=== PATIENT | male | born 1945 | race Caucasian/White ===

== ENCOUNTER 2016-11-18 13:47 | Emergency (ER) | payer MEDICARE ==
--- NOTE | 2016-11-18 13:50 | ED.REPORT ---
HPI-Trauma Minor / Fall Date of Service Nov 18, 2016 ED Provider: Angeli Stevens MD The pt is a 71 y/o male presenting to the ED via EMS due to a 15 foot fall. He was working on the side of a house, fell, and landed awkwardly on his RLE. He reports R knee and sacral pain. There was no LOC but the pt was not able to stand up after the fall. Denies fever, cough, or chills. Nursing Notes Stated Complaint: FALL Chief Complaint: Fall Nursing Notes Reviewed: Yes General Time Seen by MD: 13:50 Chief Complaint Fall Hx Obtained From: Patient, EMS Arrived By: Ambulance Onset Occurred: Just prior to arrival Symptom Duration: Since onset Recent Healthcare: No recent doctor visit, No recent hospitalization Similar Sx Previous: No Past Medical History Past Medical History None reported Past Surgical History None reported Smoking History Unknown if Ever Smoker Social History Other Social History: Good social support Ambulatory Status Independent Review of Systems Sacral pain; Constitutional: Denies: Chills, Fever Respiratory: Denies: Non-productive cough Musculoskeletal: Reports: Joint pain (R knee ) Neurologic: Denies: Change LOC Complete sys rev & neg: except as marked. Physical Exam Initial Vital Signs paper charting no blood pressures lower than systolic 90 noted Initial VS: Reviewed Head / Eyes: Atraumatic, Normocephalic, PERRL ENT: Mucous membranes moist, Conjunctiva normal, No scleral icterus Respiratory: Breath sounds normal, Clear to auscultation, No respiratory distress Cardiovascular: Regular rate & rhythm, Heart sounds normal, Intact distal pulses Neurologic: Alert, Oriented, Nonfocal Psychiatric: Mood/affect normal, Behavior normal, Normal thought content General/Constitutional: Awake, Alert Neck: Atraumatic, Supple, Full range of motion Cardiovascular: Heart rate NL, Regular rhythm, Heart sounds NL, Peripheral circulation NL Good distal pulses Flank / Spine / Paraspinal: Positive: Lumbar spine tender... (L4 and L5 ) No bruising along back; Lower Extremity / Pelvis / MS: Neurologic intact, Vascular intact, Pelvis stable Right Knee: Positive: Deformity present (w/o open skin or abrasion ) Interpretation & Diagnostics PROCEDURE: X-RAY LUMBAR SPINE, 2 OR 3 VIEW IMPRESSION: Small anterior-superior L2 vertebral body fracture. Dictated by: Iram Cook MD, PhD on 11/18/2016 at 14:46 Approved by: Iram Cook MD, PhD on 11/18/2016 at 14:49 Lab Results Interpretation Lab Results Interpretation: CT Knee: IMPRESSION: 1. Schatzker type II fracture of the lateral tibial plateau. 2. Schatzker type fracture of the proximal tibial metaphysis. Dictated by: Iram Cook MD, PhD on 11/18/2016 at 16:08 CT LS Spine IMPRESSION: 1. Transitional anatomy with 4 lumbar-type [id number]-mhh-tigemgt vertebral bodies as described above. 2. L1 and L3 acute compression fractures. No retropulsed fragments or kyphosis associated with the L1 and L3 compression fractures. Dictated by: Iram Cook MD, PhD on 11/18/2016 at 16:00 Wet read of foot/ankle xray indicate no acute fractures/dislocation. await official read X-Ray Interpretation Xray Interpretation: IMPRESSION: Displaced lateral tibial plateau fracture. Dictated by: Iram Cook MD, PhD on 11/18/2016 at 14:45 Approved by: Iram Cook MD, PhD on 11/18/2016 at 14:46 X-Ray Ordered: Knee right Interpretation / Wet Read by: Interpret - Radiologist Xray Interpretation: IMPRESSION: Small anterior-superior L2 vertebral body fracture. Dictated by: Iram Cook MD, PhD on 11/18/2016 at 14:46 Study Performed: X ray LS spine Re-Eval/Medical Decision Med Decision/Clinical Course 71-year-old woman with a fall off a 15 foot high scaffolding landing on the left knee and heel and then falling onto his buttocks. Did not hurt chest upper back neck or head no loss of consciousness. Unable to get up initially. On initial arrival awake alert oriented neurovascularly intact with full distal pulses on the right side. Gross deformity of the right knee. Minor tenderness only to the right heel and ankle and no tenderness to the pelvic ring or groin. Slight tenderness along the lumbar spine. Imaging and studies reveal complex tibial plateau fracture. I will be transferred to [facility]. There is an L1 and L3 compression fracture as well as a small vertebral body fracture of L2 there is no cord impingement or other neurologic compromise. No vascular compromise, and no intra-abdominal or thoracic injuries. Pain is controlled with IV narcotics and the patient is transferred to [facility] emergency room for further orthopedic evaluation and treatment Source of Hx: Friend Re-Evaluation/Progress #1: Time of Eval: 14:57 Re-Evaluation/Progress Note: Pt rechecked and discussed imaging results. Re-Evaluation/Progress #2: Time of Eval: 16:00 Re-Evaluation/Progress Note: CT findings as well as x-ray findings with small L2 fracture of the spinous body are reviewed with patient. Doing moderately well pain beltran is now complaining more heel pain. Initially had had minimal heel pain with compression and manipulation. Given mechanism increasing pain will go ahead and check x-rays of both heel and ankle on the right side. Anticipate need for transfer to [facility] and this process is initiated Re-Evaluation/Progress #3: Time of Eval: 17:01 Re-Evaluation/Progress Note: Updated on all findings as well as transfer anticipated to [facility]. Questions answered. PLS transfer should be here within 20 minutes. Pain is adequately controlled. Patient is safe for S transfer Consultation #1: Referral / Consult Name: Bashir Cason MD Consulted With: Orthopedic Call Returned at: 14:43 Note: Discussed pt's case w/ Dr. Cason who will consult and is requesting additional imaging. Consultation #2: Consulted With: Orthopedic Call Returned at: 16:13 Cell Biologist: Will see patient Note: Dr Cason department. Reviewed films and CTs examined patient. Recommended transfer to [facility] for complex tibial plateau fracture. Counseled Regarding: Diagnosis, Lab results Discharge & Departure Impression: Primary Impression: Tibial plateau fracture Encounter type: initial encounter Fracture type: closed Laterality: right Qualified Code: S82.141A - Displaced bicondylar fracture of right tibia, initial encounter for closed fracture Additional Impressions: Fall Encounter type: initial encounter Qualified Code: W19.XXXA - Unspecified fall, initial encounter L2 vertebral fracture Encounter type: initial encounter Fracture type: closed Fracture morphology : unspecified fracture morphology Qualified Code: S32.029A - Unspecified fracture of second lumbar vertebra, initial encounter for closed fracture Compression fracture of L1 lumbar vertebra Compression fracture of L5 lumbar vertebra Disposition: Transfer, Acute Care Facility ([facility]) Discharge Condition All VS Reviewed: Yes Condition: Stable Referrals: Angelita Saba MD Crit Care Except Billable Proc Time Spent: 30-74 minutes (37 min) Services Performed: Patient management by me, Time spent at bedside, Reviewing test results, Reviewing imaging, Discussing patient care, Documentation in record, Time with fam/surrogate Scribe Attestation Portions of this note were transcribed by Ananth Cohen. I, Dr. Stevens personally performed the history, physical exam and medical decision-making; I reviewed and confirmed the accuracy of the information in the transcribed note. copies to: Angelita Saba MD, Shawna L MD Nov 18, 2016 13:50 Ananth Cohen Nov 18, 2016 14:22
[2016-11-18] MEDS ORDERED: Ondansetron 2 mg/mL 2 mL Inj IVPUSH PRN (14:35)
[2016-11-18] MEDS: HYDROmorphone 0.5 mg/0.5 mL iSecure Syringe IVPUSH PRN ×2 (14:48→16:42)
--- NOTE | 2016-11-18 14:48 | DRSVH ---
PROCEDURE: X-RAY RIGHT KNEE, THREE VIEWS ([id number]) INDICATIONS: trauma TECHNIQUE: 3 views of the knee were acquired. COMPARISON: None. FINDINGS: Bones: Comminuted fracture of the lateral tibial plateau. Lateral tibial plateau fracture fragments are displaced laterally and proximally. Soft tissues: No joint effusion. No suspicious soft tissue calcifications. IMPRESSION: Displaced lateral tibial plateau fracture. Dictated by: Iram Cook MD, PhD on 11/18/2016 at 14:45 Approved by: Iram Cook MD, PhD on 11/18/2016 at 14:46
--- NOTE | 2016-11-18 14:50 | DRSVH ---
PROCEDURE: X-RAY LUMBAR SPINE, 2 OR 3 VIEW INDICATIONS: trauma TECHNIQUE: 3 views of the lumbar spine were acquired. COMPARISON: None. FINDINGS: Bones: Transitional anatomy with 4 lumbar type, bjc-lsg-bcdmoca vertebrae and sacralization of the L 5 vertebral body. There is normal bony alignment. Small fracture of the anterior superior margin of the L2 vertebral body noted. L4 limbus vertebrae noted. Multilevel degenerative disc disease and f acet arthropathy. Soft tissues: Overlying bowel gas pattern is normal. No suspicious soft tissue calcifications. IMPRESSION: Small anterior-superior L2 vertebral body fracture. Dictated by: Iram Cook MD, PhD on 11/18/2016 at 14:46 Approved by: Iram Cook MD, PhD on 11/18/2016 at 14:49
--- NOTE | 2016-11-18 16:07 | DRSVH ---
PROCEDURE: CT LUMBAR SPINE WITHOUT CONTRAST ([id number]) INDICATIONS: trauma TECHNIQUE: Noncontrast 3 mm thick sections acquired from the T12 level to the sacrum. Sagittal and coronal refo rmats were constructed. For radiation dose reduction, the following was used: automated exposure co ntrol. COMPARISON: None. FINDINGS: Image quality: Excellent. Bones: There is transitional anatomy with 4 lumbar-type wmh-nim-rzqlnnc vertebral bodies and complet e sacralization of the L5 vertebral body. For purposes of this dictation the 4 lumbar-type non-rib-b earing vertebral bodies were designated L1-L5 with the first sacral type vertebral body designated L5 and the last non-rudimentary disc at L4-L5. There is normal bony alignment and curvature. Compression fractures involving the anterior columns no chantal in the L1 vertebral body and the L3 vertebral body. L1 compression fracture results in approxima tely 10% loss of normal intervertebral body height. The L3 compression fracture results in minimal a nterior vertebral body height loss. Incidental note made of an L4 limbus vertebrae. No suspicious l ytic or blastic bony lesions. Central spinal caliber is of normal overall caliber. No pars defects. L4-L5 degenerative disc disease and facet arthropathy are noted. Soft tissues: No retroperitoneal masses or hematomas. Visualized aorta is normal in caliber. IMPRESSION: 1. Transitional anatomy with 4 lumbar-type qqq-knc-fbvzusq vertebral bodies as described above. 2. L1 and L3 acute compression fractures. No retropulsed fragments or kyphosis associated with the L1 and L3 compression fractures. Dictated by: Iram Cook MD, PhD on 11/18/2016 at 16:00 Approved by: Iram Cook MD, PhD on 11/18/2016 at 16:05
--- NOTE | 2016-11-18 16:13 | DRSVH ---
PROCEDURE: CT KNEE RIGHT W/O CONTRAST ([id number]) INDICATIONS: fracture TECHNIQUE: Noncontrast 1-1.5 mm axial sections acquired from the mid-patella to the proximal tibia, with coronal and sagittal reformats. COMPARISON: None. FINDINGS: Image quality: Excellent. Bones: There is a comminuted split depression fracture of the lateral tibial plateau as well as a mi nimally displaced transverse fracture proximal tibial metaphysis.. Lateral tibial plateau fracture f ragments are depressed approximately 1.9 cm and displaced laterally. Soft tissues: Soft tissue swelling noted. Small joint effusion noted. IMPRESSION: 1. Schatzker type II fracture of the lateral tibial plateau. 2. Schatzker type fracture of the proximal tibial metaphysis. Dictated by: Iram Cook MD, PhD on 11/18/2016 at 16:08 Approved by: Iram Cook MD, PhD on 11/18/2016 at 16:12
--- NOTE | 2016-11-18 16:59 | DRSVH ---
PROCEDURE: X-RAY RIGHT FOOT COMPLETE, MINIMUM THREE VIEWS ([id number]) INDICATIONS: trauma TECHNIQUE: 3 views of the foot were acquired. COMPARISON: None. FINDINGS: Bones: No fractures or dislocations. No suspicious bony lesions. Soft tissues: No tibiotalar joint effusion. Achilles tendon appears normal. IMPRESSION: No fracture. No osseous lesion. If there are persistent symptoms or clinical suspicion f or pathology, then repeat radiographs or advanced imaging (CT, MRI or bone scan) should be considered for further evaluation. Dictated by: Iram Cook MD, PhD on 11/18/2016 at 16:56 Approved by: Iram Cook MD, PhD on 11/18/2016 at 16:57
--- NOTE | 2016-11-18 17:00 | CONS ---
[address] [address] CONSULTATION REPORT PATIENT: AMY MARQUEZ : 1945 MR#: [id number] ADMIT: 11/18/2016 JOB ID: [id number] ORTHOPEDIC CONSULTATION: DATE OF SERVICE: 11/18/2016 CPT CODE: Orthopedic consultation in the emergency department, [address]48. CHIEF COMPLAINT: This is a 71-year-old male who flew off a scaffold somewhere between 12-15 feet, landing on his right lower extremity. The patient is complaining of right heel, right knee and low back pain. The patient sustained a comminuted Schatzker IV fracture of the right knee with severe depression of the lateral tibial plateau, medial plateau as well as shift of the femur on the tibia, indicating collateral ligament damage and probable cruciate ligament injury. The patient also has a fracture along L1 anterior vertebral body and may well also have calcaneal fracture with his complaints of foot pain. There was no loss of consciousness. The patient was not able ambulate after the fall. PAST MEDICAL HISTORY: According to the records, did not report any surgery or any major illnesses. REVIEW OF SYSTEMS: HEENT: No blurring of vision. Respiratory: No shortness of breath. Cardiovascular: No chest pain. GI: No nausea, vomiting. Does have back pain. Neurologic: No headache or dizziness. Psychiatric: No anxiety or depression. Hematologic: No history of easy bleeding or bruising. PHYSICAL EXAMINATION: A well-developed, well-nourished, 71-year-old male. The patient has pain in the lumbar sacral spine area. The patient also has pain in the knee and the right foot. The patient is alert and oriented. Right knee is in right knee effusion. Pain over the entire aspect of the knee. Leg compartments are soft. Distal pulses are full. Also has pain over the right heel with no significant swelling at this time. Also has pain in the low back. Moves all four extremities. The patient is able to void. IMAGING: X-rays show that she has L1 and L3 acute compression fractures with no obvious retropulsed fragments on the CAT scan. Lumbar spine films showed a small fracture of the anterior superior margin of L2 and L4. Plain films and the CT scan are slightly different in their official reading. CT scan of the knee shows that the patient has medial and lateral tibial plateau fractures with severe depression as well as involvement of the proximal tibial metaphysis and this makes it Schatzker type of fracture. IMPRESSION: Comminuted Schatzker fracture of the right knee tibial plateau and proximal tibial metaphysis. Compression fractures of the lumbar spine. Could not rule out possible calcaneal fracture. The patient would still need some additional x-rays on that right foot and heel. PLAN: Due to the complexity of the patient's injuries, in particular the knee Schatzker fracture, the patient is best served by transferring to [facility]. X-rays will be sent to [facility] as well as the patient's information. At this time, the patient is neurovascularly intact. cc: [facility] Orthopedics cc: [facility]
== END 2016-11-18 17:50 | disposition short-term general hospital (02) ==
LOC: EDBD 13:47 → SED 13:47
DX: S82.141A Displaced bicondylar fracture of right tibia, initial encounter for closed fracture (principal); S32.028A Other fracture of second lumbar vertebra, initial encounter for closed fracture; S32.018A Other fracture of first lumbar vertebra, initial encounter for closed fracture; S32.058A Other fracture of fifth lumbar vertebra, initial encounter for closed fracture; W13.2XXA Fall from, out of or through roof, initial encounter; Y93.H9 Activity, other involving exterior property and land maintenance, building and construction; Y92.009 Unspecified place in unspecified non-institutional (private) residence as the place of occurrence of the external cause; Y99.8 Other external cause status
CPT/HCPCS: 72100; 72131; 73562; 73630; 73700; 96374; 96375; 99285; G0390; J1170; J2405